=== PATIENT | female | born 1975 | race American Indian/Alaskan Native ===

== ENCOUNTER 2016-05-23 11:29 | Emergency (ER) | payer SELFPAY ==
[2016-05-23 12:36] LABS: Bilirubin,Urine NEG (Negative); Blood,Urine SM (Negative); Ketones,Urine 80 mg/dL (Negative); Leukocyte Esterase,Urine NEG (Negative); Mucus,Urine 2+ /HPF; Nitrite,Urine NEG (Negative); Urobilinogen,Urine < 2.0 mg/dL (<2.0)
[2016-05-23 12:38] LABS: Basophils % (Auto) 0.5 % (0.0-1.8); Hematocrit 44.1 % (30.3-42.9); Hemoglobin 14.4 gm/dl (10.1-14.3); Mean Corpuscular HGB Conc 33 % (30-34); Mean Corpuscular Hemoglobin 31 pg (28-32); Mean Corpuscular Volume 96 fl (79-97); Platelet Count 157 K/mm3 (140-440); Red Cell Distribution Width 13.9 % (13.2-15.2); White Blood Count 8.1 K/mm3 (4.5-11.0)
[2016-05-23 12:49] LABS: Alanine Aminotransferase 16 units/L (7-56); Albumin 4.6 g/dL (3.9-5); Albumin/Globulin Ratio 1.2 %; Alkaline Phosphatase 46 units/L (35-129); Anion Gap 22 mmol/L; BUN/Creatinine Ratio 13.33; Bilirubin,Total 0.6 mg/dL (0.1-1.2); Blood Urea Nitrogen 8 mg/dL (7-17); Calcium 9.3 mg/dL (8.4-10.2); Carbon Dioxide 19 mmol/L (22-30); Chloride 102.1 mmol/L (98-107); Glucose 114 mg/dL (65-100); Lipase 15 units/L (13-60); Potassium 3.5 mmol/L (3.6-5.0); Sodium 140 mmol/L (137-145); Total Protein 8.4 g/dL (6.3-8.2)
[2016-05-23] MEDS ORDERED: VALIUM IV ONE (13:28)
[2016-05-23] MEDS ORDERED: SUBLIMAZE IV ONE (13:28)
[2016-05-23] MEDS ORDERED: PEPCID IV ONE (13:29)
--- NOTE | 2016-05-23 13:34 | Emergency Department Report ---
HPI - General Chief Complaint: Abdominal Pain Time Seen by Provider: 05/23/16 12:54 - HPI HPI: The patient is a 40-year-old female who presents for evaluation of abdominal pain. The patient reports constant epigastric abdominal pain since 6 AM this morning, 10 out of 10 in severity, sharp and burning in quality, associated with nausea and nonbilious, nonbloody emesis. She shares that his symptoms are consistent with previous episodes of acid recent flux and gastritis. The patient denies fever, chest pain, dyspnea, diarrhea, blood in the stool, dark tarry stool, dysuria, hematuria, flank pain, genital discharge, inability to pass flatus. ED Past Medical Hx - Past Medical History Previous Medical History?: Yes Hx Hypertension: Yes Hx GERD: Yes Additional medical history: gastritis - Surgical History Past Surgical History?: No - Social History Smoking Status: Never Smoker Substance Use Type: None - Medications Home Medications: Home Medications Medication Instructions Recorded Confirmed Last Taken Type Cyclobenzaprine HCl [Flexeril 5 MG 5 mg PO Q8HR PRN #12 tab 05/23/16 Unknown Rx TAB] Famotidine [Pepcid] 20 mg PO BID 05/23/16 05/23/16 Unknown History Omeprazole Magnesium [PriLOSEC Otc] 20 mg PO QDAY #14 tablet. 05/23/16 Unknown Rx Ondansetron [Zofran TAB] 4 mg PO Q8HR PRN #14 tablet 05/23/16 Unknown Rx ED Review of Systems ROS: Stated complaint: ABD PAIN Other details as noted in HPI Constitutional: denies: fever ENT: denies: throat or neck pain Respiratory: denies: cough, shortness of breath Cardiovascular: denies: chest pain Endocrine: denies unexplained weight loss or gain Gastrointestinal: reports abdominal pain, nausea Genitourinary: denies: dysuria Musculoskeletal: denies: leg swelling Skin: denies: rash Neurological: denies: headache Hematological/Lymphatic: denies: easy bleeding or easy bruising Psych: denies sadness or hopelessness Physical Exam - Physical Exam Vital Signs: Vital Signs 05/23/16 05/23/16 11:36 12:53 Temperature 98.7 F Pulse Rate 67 Respiratory 20 24 Rate Blood Pressure 147/95 O2 Sat by Pulse 99 99 Oximetry Physical Exam: General: well-nourished, well-developed, no acute distress Head: Normocephalic, atraumatic Eyes: normal sclera ENT: Mucous membranes are pink and moist Neck: trachea midline, neck supple, No neck stiffness, no cervical adenopathy Respiratory: Breath sounds equal bilaterally, no wheezing, rales, or rhonchi Cardio: S1 and S2 present, no murmurs, rubs, gallops, capillary refill is brisk Abdomen: Normoactive bowel sounds, soft abdomen, epigastric tenderness to palpation present, no rigidity, no guarding or rebound tenderness Chest WALL/Back: No tenderness to palpation of the chest wall, no CVA tenderness with percussion Musc: No pitting edema Skin: No rash Neuro: no facial drooping, normal speech Psych: Normal affect ED Course Vital Signs 05/23/16 05/23/16 11:36 12:53 Temperature 98.7 F Pulse Rate 67 Respiratory 20 24 Rate Blood Pressure 147/95 O2 Sat by Pulse 99 99 Oximetry ED Medical Decision Making - Lab Data Result diagrams: 05/23/16 11:55 05/23/16 11:55 - Medical Decision Making The patient was seen and examined by myself. The patient is placed on a residential monitor and continuous pulse ox. On initial evaluation, the patient was found to be in no distress. Evaluation orders are placed. The patient is given an IV dose of valium for her pain, and zofran for nausea. Lab results were non-concerning including WBC, hemoglobin, hematocrit, electrolytes, renal function, LFTs, lipase, and urinalysis. The patient was reevaluated and reported that their symptoms were markedly improved. The patient is stable for discharge with outpatient follow-up. The patient is given follow-up and return instructions. The patient expressed understanding and agreed with the plan. The patient is discharged in stable condition. Critical care attestation.: If time is entered above; I have spent that time in minutes in the direct care of this critically ill patient, excluding procedure time. ED Disposition Clinical Impression: Abdominal pain, acute, epigastric Disposition: DISCHARGED TO HOME OR SELFCARE Is pt being admited?: No Does the pt Need Aspirin: No Condition: Stable Instructions: Abdominal Pain (ED), Gastritis (ED), Diet for Ulcers and Gastritis (ED), Peptic Ulcer (ED) Referrals: PRIMARY CARE, [Primary Care Provider] - 3-5 Days Time of Disposition: 13:30
[2016-05-23] MEDS ORDERED: ZOFRAN IV ONE (13:36)
[2016-05-23 14:16] VITALS: BP 136/84
== END 2016-05-23 14:17 | disposition home or self-care (01) ==
LOC: ED 11:29
DX: R10.13 Epigastric pain (principal); R11.2 Nausea with vomiting, unspecified; K21.9 Gastro-esophageal reflux disease without esophagitis; I10 Essential (primary) hypertension; Z79.899 Other long term (current) drug therapy
CPT/HCPCS: 36415; 80053; 81001; 83690; 84703; 85025; 96374; 96375; 99284; J2405; J3010; J3360

== ENCOUNTER 2016-08-18 06:43 | Emergency (ER) | payer SELFPAY ==
[2016-08-18] MEDS ORDERED: DILAUDID ONE (07:29)
[2016-08-18] MEDS ORDERED: DILAUDID IV ONE ×2 (07:32→09:15)
[2016-08-18] MEDS ORDERED: ZOFRAN IV ONE ×2 (07:32→09:52)
[2016-08-18] MEDS ORDERED: NACL 0.9% 1000 ML 1,000 ML IV ONE ×2 (07:32→09:15)
--- NOTE | 2016-08-18 07:36 | Emergency Department Report ---
ED N/V/D HPI - General Chief complaint: Nausea/Vomiting/Diarrhea Stated complaint: ABD PAIN Time Seen by Provider: 08/18/16 07:29 Source: patient, RN notes reviewed Mode of arrival: Ambulatory Limitations: No Limitations - History of Present Illness Initial comments: 40-year-old female presents to the emergency department via EMS complaining of abdominal pain with nausea and vomiting. Patient states symptoms began last night at approximately 8 PM. Patient describes the pain as a "knot" in her abdomen. Pain does not radiate. Pain has been constant since onset. Patient reports emesis was bright yellow, and she had one episode of a small amount of dark blood in the emesis. Patient reports one episode of loose stools, without blood. There are no other complaints. MD complaint: nausea, vomiting, abdominal pain -: Sudden, During the night Time: 20:00 Description of Vomiting: bilious Description of Diarrhea: water Associated Abdominal Pain: Yes Location: LUQ, epigastric Radiation: none Severity: severe Pain Scale: 9 Quality: cramping Consistency: constant Improves with: none Worsens with: none Associated Symptoms: denies other symptoms - Related Data Previous Rx's Medication Instructions Recorded Last Taken Type HYDROcodone/APAP 5-325 [[place] 1 each PO Q6HR PRN #20 tablet 08/18/16 Unknown Rx 5/325] Omeprazole 40 mg PO DAILY #30 capsule. 08/18/16 Unknown Rx Promethazine [Phenergan TAB] 25 mg PO Q6HR PRN #20 tab 08/18/16 Unknown Rx Allergies Allergy/AdvReac Type Severity Reaction Status Date / Time No Known Allergies Allergy Unverified 08/22/15 17:10 ED Review of Systems ROS: Stated complaint: ABD PAIN Other details as noted in HPI Comment: All other systems reviewed and negative Gastrointestinal: abdominal pain, nausea, vomiting, diarrhea ED Past Medical Hx - Past Medical History Previous Medical History?: Yes Hx Hypertension: Yes Hx GERD: Yes Additional medical history: gastritis - Surgical History Past Surgical History?: Yes Additional Surgical History: hysterectomy - Family History Family history: no significant - Social History Smoking Status: Unknown if ever smoked Substance Use Type: None - Medications Home Medications: Home Medications Medication Instructions Recorded Confirmed Last Taken Type HYDROcodone/APAP 5-325 [[place] 1 each PO Q6HR PRN #20 tablet 08/18/16 Unknown Rx 5/325] Omeprazole 40 mg PO DAILY #30 capsule. 08/18/16 Unknown Rx Promethazine [Phenergan TAB] 25 mg PO Q6HR PRN #20 tab 08/18/16 Unknown Rx ED Physical Exam - General Limitations: No Limitations General appearance: alert, in no apparent distress - Head Head exam: Present: atraumatic, normocephalic - Eye Eye exam: Present: normal appearance, PERRL, EOMI - ENT ENT exam: Present: normal exam, normal orophraynx, mucous membranes moist - Neck Neck exam: Present: normal inspection, full ROM. Absent: tenderness - Respiratory Respiratory exam: Present: normal lung sounds bilaterally. Absent: respiratory distress - Cardiovascular Cardiovascular Exam: Present: normal rhythm, tachycardia, normal heart sounds - GI/Abdominal GI/Abdominal exam: Present: soft, tenderness (mild tenderness to palpation in the left upper quadrant.), normal bowel sounds. Absent: distended, guarding, rebound - Extremities Exam Extremities exam: Present: normal inspection, full ROM. Absent: tenderness - Back Exam Back exam: Present: normal inspection, full ROM. Absent: tenderness - Neurological Exam Neurological exam: Present: alert, oriented X3. Absent: motor sensory deficit - Skin Skin exam: Present: warm, dry, intact ED Course Vital Signs 08/18/16 08/18/16 08/18/16 07:19 07:25 07:45 Temperature 99.2 F Pulse Rate 122 H Respiratory 20 18 Rate Blood Pressure 168/80 Blood Pressure [Left] O2 Sat by Pulse 99 100 100 Oximetry 08/18/16 08/18/16 08/18/16 07:50 08:00 08:10 Temperature Pulse Rate 61 51 L 69 Respiratory 8 L 10 L 15 Rate Blood Pressure 172/102 176/94 176/94 Blood Pressure [Left] O2 Sat by Pulse 97 95 97 Oximetry 08/18/16 08/18/16 08/18/16 08:20 08:30 08:40 Temperature Pulse Rate 51 L 53 L 52 L Respiratory 13 11 L 14 Rate Blood Pressure 176/94 176/94 176/94 Blood Pressure [Left] O2 Sat by Pulse 97 97 98 Oximetry 08/18/16 08/18/16 08/18/16 08:50 09:00 09:10 Temperature Pulse Rate 50 L 51 L 66 Respiratory 22 16 18 Rate Blood Pressure 176/94 179/90 179/90 Blood Pressure [Left] O2 Sat by Pulse 93 96 Oximetry 08/18/16 08/18/16 08/18/16 09:20 09:30 09:40 Temperature Pulse Rate 53 L 53 L 60 Respiratory 17 14 14 Rate Blood Pressure 179/90 179/90 179/90 Blood Pressure [Left] O2 Sat by Pulse 98 100 96 Oximetry 08/18/16 08/18/16 08/18/16 09:50 10:00 10:10 Temperature Pulse Rate 77 84 75 Respiratory 16 14 19 Rate Blood Pressure 179/90 126/75 126/75 Blood Pressure [Left] O2 Sat by Pulse 96 92 97 Oximetry 08/18/16 08/18/16 08/18/16 10:20 10:30 10:40 Temperature Pulse Rate 77 80 84 Respiratory 19 10 L 13 Rate Blood Pressure 126/75 126/75 126/75 Blood Pressure [Left] O2 Sat by Pulse 96 100 98 Oximetry 08/18/16 10:54 Temperature 98.7 F Pulse Rate 84 Respiratory 16 Rate Blood Pressure Blood Pressure 124/75 [Left] O2 Sat by Pulse 100 Oximetry ED Medical Decision Making - Lab Data Result diagrams: 08/18/16 07:43 08/18/16 07:43 - Medical Decision Making Laboratory results reviewed and discussed with the patient. Patient reports her pain is resolved with medication and IV fluids. Patient will be discharged home at this time. - Differential Diagnosis gastritis, PUD, pancreatitis Critical care attestation.: If time is entered above; I have spent that time in minutes in the direct care of this critically ill patient, excluding procedure time. ED Disposition Clinical Impression: Acute gastritis without hemorrhage Qualifiers: Gastritis type: unspecified gastritis Qualified Code(s): K29.00 - Acute gastritis without bleeding Disposition: DISCHARGED TO HOME OR SELFCARE Is pt being admited?: No Condition: Stable Instructions: Gastritis (ED) Additional Instructions: If symptoms worsen, or if new symptoms develop, return to the emergency department. Prescriptions: HYDROcodone/APAP 5-325 [[place] 5/325] 1 each PO Q6HR PRN #20 tablet PRN Reason: Pain Omeprazole 40 mg PO DAILY #30 capsule. Promethazine [Phenergan TAB] 25 mg PO Q6HR PRN #20 tab PRN Reason: Nausea Referrals: PRIMARY CARE, [Primary Care Provider] - 3-5 Days Time of Disposition: 11:10
[2016-08-18 07:53] LABS: Basophils % (Auto) 0.4 % (0.0-1.8); Eosinophils % (Auto) 0.1 % (0.0-4.3); Hematocrit 43.3 % (30.3-42.9); Hemoglobin 14.3 gm/dl (10.1-14.3); Mean Corpuscular HGB Conc 33 % (30-34); Mean Corpuscular Hemoglobin 30 pg (28-32); Mean Corpuscular Volume 91 fl (79-97); Platelet Count 162 K/mm3 (140-440); Red Blood Count 4.73 M/mm3 (3.65-5.03); Red Cell Distribution Width 13.7 % (13.2-15.2)
[2016-08-18 08:14] LABS: Alanine Aminotransferase 18 units/L (7-56); Albumin 4.7 g/dL (3.9-5); Albumin/Globulin Ratio 1.3 %; Alkaline Phosphatase 49 units/L (35-129); Anion Gap 21 mmol/L; Blood Urea Nitrogen 9 mg/dL (7-17); Calcium 9.8 mg/dL (8.4-10.2); Carbon Dioxide 21 mmol/L (22-30); Chloride 97.1 mmol/L (98-107); Glucose 148 mg/dL (65-100); Potassium 3.5 mmol/L (3.6-5.0); Sodium 136 mmol/L (137-145); Total Protein 8.4 g/dL (6.3-8.2)
[2016-08-18 08:50] LABS: Bilirubin,Urine NEG (Negative); Blood,Urine NEG (Negative); Ketones,Urine 80 mg/dL (Negative); Leukocyte Esterase,Urine NEG (Negative); Mucus,Urine FEW /HPF; Nitrite,Urine NEG (Negative); Urobilinogen,Urine < 2.0 mg/dL (<2.0)
[2016-08-18 10:54] VITALS: BP 124/75
== END 2016-08-18 11:00 | disposition home or self-care (01) ==
LOC: ED 06:43
DX: K29.00 Acute gastritis without bleeding (principal); I10 Essential (primary) hypertension; K21.9 Gastro-esophageal reflux disease without esophagitis
CPT/HCPCS: 36415; 80053; 81001; 83690; 85025; 96361; 96374; 96375; 96376; 99283; J1170; J2405; J7030

== ENCOUNTER 2016-08-20 01:46 | Emergency (ER) | payer OTHER ==
[2016-08-20] MEDS ORDERED: ZOFRAN ONE ×2 (02:24→10:23)
[2016-08-20] MEDS ORDERED: NACL 0.9% 1000 ML 1,000 ML ONE (02:25)
[2016-08-20] MEDS ORDERED: NACL 0.9% 1000 ML 1,000 ML IV ONE (02:42)
[2016-08-20] MEDS ORDERED: ZOFRAN IV ONE ×2 (02:42→10:31)
[2016-08-20 03:17] LABS: Basophils % (Auto) 0.5 % (0.0-1.8); Eosinophils % (Auto) 0.2 % (0.0-4.3); Hematocrit 44.2 % (30.3-42.9); Hemoglobin 14.7 gm/dl (10.1-14.3); Mean Corpuscular HGB Conc 33 % (30-34); Mean Corpuscular Hemoglobin 30 pg (28-32); Mean Corpuscular Volume 91 fl (79-97); Platelet Count 152 K/mm3 (140-440); Red Blood Count 4.86 M/mm3 (3.65-5.03); Red Cell Distribution Width 14.2 % (13.2-15.2); White Blood Count 6.9 K/mm3 (4.5-11.0)
[2016-08-20 03:27] LABS: Bacteria,Urine 1+ /HPF (Negative); Bilirubin,Urine NEG (Negative); Blood,Urine MOD (Negative); Ketones,Urine 80 mg/dL (Negative); Leukocyte Esterase,Urine NEG (Negative); Mucus,Urine FEW /HPF; Nitrite,Urine NEG (Negative); Urobilinogen,Urine < 2.0 mg/dL (<2.0)
[2016-08-20 03:36] LABS: Anion Gap 21 mmol/L; BUN/Creatinine Ratio 13.33; Blood Urea Nitrogen 8 mg/dL (7-17); Carbon Dioxide 21 mmol/L (22-30); Chloride 99.1 mmol/L (98-107); Glucose 110 mg/dL (65-100); Lipase 15 units/L (13-60); Potassium 3.3 mmol/L (3.6-5.0); Sodium 138 mmol/L (137-145)
[2016-08-20] MEDS ORDERED: PERCOCET 5/325 ONE (04:22)
[2016-08-20] MEDS ORDERED: PERCOCET 5/325 PO ONE (04:30)
[2016-08-20] MEDS: NACL 0.9% 1000 ML 1,000 ML IV ONE ×2 (04:51→05:15)
[2016-08-20] MEDS ORDERED: DILAUDID IV ONE (06:38)
[2016-08-20] MEDS ORDERED: REGLAN IV ONE (06:38)
[2016-08-20] MEDS ORDERED: BENADRYL IV ONE (06:38)
[2016-08-20] MEDS ORDERED: NACL ONE (06:50)
[2016-08-20] MEDS ORDERED: D5NS 1,000 ML IV SCH (07:00)
--- NOTE | 2016-08-20 07:38 | Emergency Department Report ---
ED Abdominal Pain HPI - General Chief Complaint: Abdominal Pain Stated Complaint: ABD PAIN,N/V Time Seen by Provider: 08/20/16 06:21 Source: patient, EMS Mode of arrival: Stretcher Limitations: No Limitations - History of Present Illness Initial Comments: 40-year-old female with a past medical history GERD, hypertension, gastritis, and previous hysterectomy presents to the hospital complaining of abdominal pain with nausea vomiting. Pain is in epigastric area, rated 10/10 in intensity , described as a tightness. Pain is intermittent and worse with palpation and no alleviating factors and states she has had similar symptoms in the past and when she had insurance she was seeing a GI specialist. She reports that previous endoscopy did not reveal any acute abnormality. Patient was seen here yesterday by Dr. Cleary and was seen here in May for similar symptoms. Patient has not yet filled the medications prescribed yesterday. Patient having vomiting with by mouth intolerance. She denies hematemesis, hematochezia , coffee ground emesis, diarrhea, melena, or fever. Severity scale (0 -10): 7 - Related Data Previous Rx's Medication Instructions Recorded Last Taken Type HYDROcodone/APAP 5-325 [[place] 1 each PO Q6HR PRN #20 tablet 08/18/16 Unknown Rx 5/325] Omeprazole 40 mg PO DAILY #30 capsule. 08/18/16 Unknown Rx Promethazine [Phenergan TAB] 25 mg PO Q6HR PRN #20 tab 08/18/16 Unknown Rx amLODIPine [Norvasc] 5 mg PO DAILY #30 tab 08/18/16 Unknown Rx Allergies Allergy/AdvReac Type Severity Reaction Status Date / Time No Known Allergies Allergy Unverified 08/22/15 17:10 ED Review of Systems ROS: Stated complaint: ABD PAIN,N/V Other details as noted in HPI Comment: All other systems reviewed and negative Other: Constitutional: No fevers chills Eyes: No eye pain visual changes ENT: No ear pain or throat pain Neck: Denies pain Respiratory: Denies cough wheezing shortness of breath Cardiovascular: Denies chest pain, palpitations, syncope GI: as per hpi : Denies dysuria Musculoskeletal: Denies back pain Skin: Denies rash, lesions, erythema Neurologic: Denies headache, numbness, weakness Psychiatric: Denies suicidal ideation, hallucinations ED Past Medical Hx - Past Medical History Hx Hypertension: Yes Hx GERD: Yes Additional medical history: gastritis - Surgical History Additional Surgical History: hysterectomy - Social History Smoking Status: Current Every Day Smoker Substance Use Type: Alcohol - Medications Home Medications: Home Medications Medication Instructions Recorded Confirmed Last Taken Type HYDROcodone/APAP 5-325 [[place] 1 each PO Q6HR PRN #20 tablet 08/18/16 Unknown Rx 5/325] Omeprazole 40 mg PO DAILY #30 capsule. 08/18/16 Unknown Rx Promethazine [Phenergan TAB] 25 mg PO Q6HR PRN #20 tab 08/18/16 Unknown Rx amLODIPine [Norvasc] 5 mg PO DAILY #30 tab 08/18/16 Unknown Rx ED Physical Exam - General Limitations: No Limitations - Other Other exam information: General: No limitations, moderate distress secondary to pain Head exam: Atraumatic, normocephalic Eyes exam: Normal appearance, nonicteric sclera ENT: Moist mucous membrane, normal oropharynx Neck exam: Normal inspection, full range of motion Respiratory exam: Clear to auscultation bilateral, no wheezes, rales, crackles Cardiovascular: Normal rate and rhythm, normal heart sounds Abdomen: Soft, nondistended, epigastric tenderness, with normal bowel sounds, no rebound, or guarding Extremity: Full range of motion normal inspection no deformity Back: Normal Inspection, full range of motion, no tenderness Neurologic: Alert, oriented x3, cranial nerves intact, no motor or sensory deficit Psychiatric: normal affect, normal mood Skin: Warm, dry, intact ED Course Vital Signs 08/20/16 08/20/16 08/20/16 02:08 02:10 02:19 Temperature Pulse Rate Respiratory 20 Rate Blood Pressure 205/100 Blood Pressure [Left] O2 Sat by Pulse 100 66 L 100 Oximetry 08/20/16 08/20/16 08/20/16 02:20 02:21 02:30 Temperature 98.4 F Pulse Rate 60 Respiratory 20 Rate Blood Pressure 205/100 205/100 Blood Pressure 105/100 [Left] O2 Sat by Pulse 99 100 100 Oximetry 08/20/16 08/20/16 08/20/16 02:40 02:50 03:00 Temperature Pulse Rate Respiratory Rate Blood Pressure 205/100 205/100 205/100 Blood Pressure [Left] O2 Sat by Pulse 100 97 73 L Oximetry 08/20/16 08/20/16 08/20/16 03:10 03:20 03:30 Temperature Pulse Rate Respiratory Rate Blood Pressure 205/100 205/100 205/100 Blood Pressure [Left] O2 Sat by Pulse 99 98 100 Oximetry 08/20/16 08/20/16 08/20/16 03:40 03:50 04:00 Temperature Pulse Rate Respiratory Rate Blood Pressure 205/100 205/100 205/100 Blood Pressure [Left] O2 Sat by Pulse 100 79 L 95 Oximetry 08/20/16 08/20/16 08/20/16 04:10 04:20 04:30 Temperature Pulse Rate Respiratory Rate Blood Pressure 205/100 205/100 205/100 Blood Pressure [Left] O2 Sat by Pulse 96 100 100 Oximetry 08/20/16 08/20/16 08/20/16 04:42 04:50 05:00 Temperature Pulse Rate Respiratory Rate Blood Pressure 205/100 205/100 205/100 Blood Pressure [Left] O2 Sat by Pulse 98 100 99 Oximetry 08/20/16 08/20/16 08/20/16 05:10 05:20 05:31 Temperature Pulse Rate Respiratory Rate Blood Pressure 205/100 197/94 197/94 Blood Pressure [Left] O2 Sat by Pulse 99 100 99 Oximetry 08/20/16 08/20/16 08/20/16 05:40 05:50 06:00 Temperature Pulse Rate Respiratory Rate Blood Pressure 197/94 197/94 188/93 Blood Pressure [Left] O2 Sat by Pulse 100 99 99 Oximetry 08/20/16 08/20/16 08/20/16 06:10 06:20 06:30 Temperature Pulse Rate Respiratory Rate Blood Pressure 188/93 175/96 177/87 Blood Pressure [Left] O2 Sat by Pulse 97 93 100 Oximetry 08/20/16 08/20/16 08/20/16 06:40 06:50 08:00 Temperature Pulse Rate 74 Respiratory 16 Rate Blood Pressure 177/87 190/95 Blood Pressure 134/85 [Left] O2 Sat by Pulse 100 100 98 Oximetry - Reevaluation(s) Reevaluation #1: 08/20/16 07:39 Percocet, Zofran, and 2 L of normal saline given her prior to my evaluation. Patient continues to complain of pain and requesting IV Dilaudid. IV Dilaudid, Reglan, PO potassium, and Benadryl ordered. CT pending Reevaluation #2: 08/20/16 09:56 Patient reports very much better was ED treatment. She is more alert, smiling, able to tolerate by mouth. ED Medical Decision Making - Lab Data Result diagrams: 08/20/16 03:01 08/20/16 03:01 Lab Results 08/20/16 08/20/16 08/20/16 Range/Units 03:01 03:01 03:01 WBC 6.9 (4.5-11.0) K/mm3 RBC 4.86 (3.65-5.03) M/mm3 Hgb 14.7 H (10.1-14.3) gm/dl Hct 44.2 H (30.3-42.9) % MCV 91 (79-97) fl MCH 30 (28-32) pg MCHC 33 (30-34) % RDW 14.2 (13.2-15.2) % Plt Count 152 (140-440) K/mm3 Lymph % (Auto) 15.4 (13.4-35.0) % [place] % (Auto) 3.6 (0.0-7.3) % Eos % (Auto) 0.2 (0.0-4.3) % Baso % (Auto) 0.5 (0.0-1.8) % Lymph # 1.1 L (1.2-5.4) K/mm3 [place] # 0.2 (0.0-0.8) K/mm3 Eos # 0.0 (0.0-0.4) K/mm3 Baso # 0.0 (0.0-0.1) K/mm3 Seg Neutrophils % 80.3 H (40.0-70.0) % Seg Neutrophils # 5.5 (1.8-7.7) K/mm3 Sodium 138 (137-145) mmol/L Potassium 3.3 L (3.6-5.0) mmol/L Chloride 99.1 (98-107) mmol/L Carbon Dioxide 21 L (22-30) mmol/L Anion Gap 21 mmol/L BUN 8 (7-17) mg/dL Creatinine 0.6 L (0.7-1.2) mg/dL Estimated GFR > 60 ml/min BUN/Creatinine Ratio 13.33 % Glucose 110 H (65-100) mg/dL Calcium 9.0 (8.4-10.2) mg/dL Magnesium 1.90 (1.7-2.3) mg/dL Lipase 15 (13-60) units/L Urine Color (Yellow) Urine Turbidity (Clear) Urine pH (5.0-7.0) Ur Specific [place] (1.003-1.030) Urine Protein (Negative) mg/dL Urine Glucose (UA) (Negative) mg/dL Urine Ketones (Negative) mg/dL Urine Blood (Negative) Urine Nitrite (Negative) Urine Bilirubin (Negative) Urine Urobilinogen (<2.0) mg/dL Ur Leukocyte Esterase (Negative) Urine WBC (Auto) (0.0-6.0) /HPF Urine RBC (Auto) (0.0-6.0) /HPF U Epithel Cells (Auto) (0-13.0) /HPF Urine Bacteria (Auto) (Negative) /HPF Urine Mucus /HPF Urine HCG, Qual (Negative) 08/20/16 Range/Units 03:09 WBC (4.5-11.0) K/mm3 RBC (3.65-5.03) M/mm3 Hgb (10.1-14.3) gm/dl Hct (30.3-42.9) % MCV (79-97) fl MCH (28-32) pg MCHC (30-34) % RDW (13.2-15.2) % Plt Count (140-440) K/mm3 Lymph % (Auto) (13.4-35.0) % [place] % (Auto) (0.0-7.3) % Eos % (Auto) (0.0-4.3) % Baso % (Auto) (0.0-1.8) % Lymph # (1.2-5.4) K/mm3 [place] # (0.0-0.8) K/mm3 Eos # (0.0-0.4) K/mm3 Baso # (0.0-0.1) K/mm3 Seg Neutrophils % (40.0-70.0) % Seg Neutrophils # (1.8-7.7) K/mm3 Sodium (137-145) mmol/L Potassium (3.6-5.0) mmol/L Chloride (98-107) mmol/L Carbon Dioxide (22-30) mmol/L Anion Gap mmol/L BUN (7-17) mg/dL Creatinine (0.7-1.2) mg/dL Estimated GFR ml/min BUN/Creatinine Ratio % Glucose (65-100) mg/dL Calcium (8.4-10.2) mg/dL Magnesium (1.7-2.3) mg/dL Lipase (13-60) units/L Urine Color Yellow (Yellow) Urine Turbidity Clear (Clear) Urine pH 7.0 (5.0-7.0) Ur Specific [place] 1.018 (1.003-1.030) Urine Protein 30 mg/dl (Negative) mg/dL Urine Glucose (UA) Neg (Negative) mg/dL Urine Ketones 80 (Negative) mg/dL Urine Blood Mod (Negative) Urine Nitrite Neg (Negative) Urine Bilirubin Neg (Negative) Urine Urobilinogen < 2.0 (<2.0) mg/dL Ur Leukocyte Esterase Neg (Negative) Urine WBC (Auto) 2.0 (0.0-6.0) /HPF Urine RBC (Auto) 12.0 (0.0-6.0) /HPF U Epithel Cells (Auto) 6.0 (0-13.0) /HPF Urine Bacteria (Auto) 1+ (Negative) /HPF Urine Mucus Few /HPF Urine HCG, Qual Negative (Negative) - Radiology Data Radiology results: report reviewed Abdominal x-ray: No acute findings CT abdomen and pelvis IV contrast: Nonspecific jejunal dilatation or wall thickening with a transition point to normal caliber small bowel in the left mid abdomen. Likely represents a nonspecific enteritis. No mass or obstruction. Normal pelvis - Medical Decision Making Patient feels much better with ED treatment. Patient is uninsured and therefore we will provide a good Rx car to assist with medical her medications more affordable. Outpatient follow-up will be recommended. Patient be encouraged to fill her recently prescribed medication. - Differential Diagnosis pancreatitis, gastritis, obstruction Critical Care Time: No Critical care attestation.: If time is entered above; I have spent that time in minutes in the direct care of this critically ill patient, excluding procedure time. ED Disposition Clinical Impression: Acute gastritis without hemorrhage Disposition: DISCHARGED TO HOME OR SELFCARE Is pt being admited?: No Does the pt Need Aspirin: No Condition: Stable Instructions: Gastritis (ED) Additional Instructions: Fill your recently prescribed medications and take as prescribed. Return if symptoms worsen. Use the good Rx card provided to make it medications more affordable. [place] varies depending on the pharmacy however, medications are typically the cheapest at [facility] with this card. Follow with the primary care doctor or clinic provided and the GI specialist Referrals: PRIMARY MD MANDY [Primary Care Provider] - 3-5 Days [facility] [Provider Group] - 3-5 Days (primary clinic) DMITRIY MERLOS MD [Staff Physician] - 3-5 Days (Primary care doctor) JOSE GUADALUPE GOODWIN MD [Staff Physician] - 3-5 Days (GI specialist) Time of Disposition: 09:59
[2016-08-20] MEDS ORDERED: K-DUR PO ONE (07:44)
--- NOTE | 2016-08-20 09:31 | Cat Scan Report ---
CT ABDOMEN AND PELVIS WITH CONTRAST: 08/20/16 01:46:00 CLINICAL: Epigastric pain. Nausea and vomiting. COMPARISON: None. TECHNIQUE: Volumetric acquisition and 1.25 millimeter scan reconstructions after the uneventful intravenous injection of 100 cc Omnipaque 300. Consent was obtained prior to the administration of contrast. Oral contrast was also given. FINDINGS: Abdomen: Clear lung bases.Normal liver, bile ducts and gallbladder. Normal stomach, duodenum, pancreas and spleen. Normal aorta and inferior vena cava. Mild dilatation of proximal small bowel loops along with moderate wall thickening of several loops. There is a transition point to normal caliber small bowel in the left mid abdomen but there is no apparent stricture or mass. No bowel obstruction. Normal ascending, transverse and descending colon. The appendix is well imaged and normal. Normal adrenal glands. The kidneys are normal except for a few tiny bilateral cysts. The renal collecting systems and ureters are nondilated. No mass, lymphadenopathy or ascites.No pneumoperitoneum. Pelvis: Normal urinary bladder.Normal uterus and ovaries. An IUD is in normal position in the uterine cavity. Normal rectum and sigmoid colon.No adnexal mass or free fluid.. Bone windows demonstrate no bone lesion. IMPRESSION:1. Nonspecific jejunal dilatation and wall thickening with a transition point to normal caliber small bowel in the left mid abdomen. This likely represents a nonspecific enteritis. 2. No mass or obstruction. 3. Normal pelvis.
--- NOTE | 2016-08-20 09:32 | XRay Report ---
ABDOMEN TWO VIEWS: 08/20/16 04:32:00 CLINICAL: Abdominal pain. COMPARISON: FINDINGS: Supine upright views demonstrate a normal bowel gas pattern with a relative paucity of bowel gas. No distended bowel and no air-fluid levels. No mass or suspicious calcifications. IUD and phleboliths in the pelvis. The bones and soft tissues are normal. IMPRESSION: Negative abdomen.
[2016-08-20 11:15] VITALS: BP 132/78
== END 2016-08-20 11:16 | disposition home or self-care (01) ==
LOC: ED 01:46
DX: K29.70 Gastritis, unspecified, without bleeding (principal); I10 Essential (primary) hypertension; K21.9 Gastro-esophageal reflux disease without esophagitis; F17.200 Nicotine dependence, unspecified, uncomplicated
CPT/HCPCS: 36415; 74020; 74177; 80048; 81001; 81025; 83690; 83735; 85025; 96361; 96374; 96375; 96376; 99285; J1170; J1200; J2405; J2765; J7030; J7042; Q9967

== ENCOUNTER 2019-11-29 00:06 | Emergency (ER) | payer SELFPAY ==
[2019-11-29 00:25] VITALS: BP 148/102
[2019-11-29 01:42] LABS: Basophils # (Auto) 0.1 K/mm3 (0.0-0.1); Basophils % (Auto) 0.7 % (0.0-1.8); Hematocrit 49.7 % (30.3-42.9); Hemoglobin 16.8 gm/dl (10.1-14.3); Lymphocytes # (Auto) 1.7 K/mm3 (1.2-5.4); Lymphocytes % (Auto) 25.4 % (13.4-35.0); Mean Corpuscular HGB Conc 34 % (30-34); Mean Corpuscular Volume 94 fl (79-97); Monocytes # (Auto) 0.6 K/mm3 (0.0-0.8); Monocytes % (Auto) 8.2 % (0.0-7.3); Platelet Count 193 K/mm3 (140-440); Red Cell Distribution Width 14.4 % (13.2-15.2)
[2019-11-29 01:49] LABS: Alanine Aminotransferase 23 units/L (7-56); Albumin 4.8 g/dL (3.9-5); Blood Urea Nitrogen 12 mg/dL (7-17); Calcium 10.6 mg/dL (8.4-10.2); Hemolysis Index 93
[2019-11-29 02:13] LABS: BUN/Creatinine Ratio 20
== END 2019-11-29 00:45 | disposition left against medical advice (07) ==
LOC: ED 00:06
DX: R11.2 Nausea with vomiting, unspecified (principal); Z53.21 Procedure and treatment not carried out due to patient leaving prior to being seen by health care provider
CPT/HCPCS: 36415; 80053; 82550; 83690; 83735; 84703; 85025